=== PATIENT | female | born 1990 | race Caucasian/White ===

== ENCOUNTER 2025-06-18 14:21 | Outpatient (AMB) | payer OTHER, SELFPAY ==
--- NOTE | 2025-06-18 14:48 | MHC.OFFVIS ---
Intake Visit Reasons: headache HPI Comments Details: The patient is a 34-year-old female presenting with recurrent headaches and dizziness following a head injury. In March 2023, she sustained a head impact from a softball without loss of consciousness. Initially, she exhibited no concerning symptoms, leading to an absence of immediate imaging evaluations. Post-injury, the patient reports recurring dizziness and severe migraine-like headaches, primarily triggered by physical activity. Described as throbbing with associated nausea and dizziness, these episodes impact her daily activities, notably work and driving, and last 6 to 10 hours. While ibuprofen and aspirin have been attempted, their efficacy is limited. The patient expresses concerns about potential long-term consequences of the head trauma and requests imaging studies to assess her condition. Review of Systems Const Details: - Neurological: Reports headaches, dizziness, migraines with nausea. Denies loss of consciousness post-injury. - Musculoskeletal: Reports prior knee surgery in 2009. No current issues reported. - Psychiatric: No relevant symptoms reported. - Others: Denies any aural symptoms prior to the current headache issues. Physical Exam Neuro Other: Mental Status: Alert and oriented to person, place, and time. Normal attention. Normal spontaneous speech, fluency, and comprehension. No obvious issues with mood and memory. Affect is appropriate. Cranial Nerves: CN II: Visual long full to confrontation, visual acuity intact. CN III, IV, : Pupils equal, round, reactive to light and accommodation. Extraocular movements are normal. CN V: Facial sensation is normal. CN VII: Facial movements symmetrical. CN VIII: Hearing intact to bedside conversation is normal. CN IX, X: Palate elevates symmetrically. CN XI: Shoulder shrug and head turn symmetrical. CN XII: Tongue midline without atrophy or fasciculations. Motor: Bulk and tone normal in all extremities. No significant muscle weakness in arms and legs. No drift. Reflexes: Deep tendon reflexes 2+ and symmetric. Plantar response down-going bilaterally. Coordination: Uwcgmt-tb-huas and cdvg-kd-kewk testing normal. No dysmetria. Gait and Station: No obvious gait abnormality. No ataxia or instability. Sensory: Intact to light touch, pinprick, and vibration. Romberg is negative. Extrapyramidal: Full facial expressions and blinking. No rigidity. Movements are appropriate with no tremor or abnormality. Speech: Normal; no dysarthria or tremor. Assessment & Plan Assessment & Plan (1) Migraine without aura and without status migrainosus, not intractable: Code(s): G43.009 - Migraine without aura, not intractable, without status migrainosus Category: Medical Plan Impression: 1. Migraine without aura 2. History of mild concussion 3. Significant anxiety about having some serious neurological or brain condition Recommendations: 1. MRI of brain without contrast 2. Laboratories 3. Sumatriptan 50 mg 1 q.day PRN Orders: Orders MR head/brain wo con Today G43.009 - Migraine without aura, not intractable, without status migrainosus Erythrocyte Sedimentation Rate Today G43.009 - Migraine without aura, not intractable, without status migrainosus Lyme IgG/IgM w/reflex to WB Today G43.009 - Migraine without aura, not intractable, without status migrainosus BRIANNA Reflex Titer and Pattern Today G43.009 - Migraine without aura, not intractable, without status migrainosus Medications: New sumatriptan succinate 50 mg orally one a day as needed PRN; do not exceed 4 doses per 24 hrs 10 tabs 5RF migraine headache 30 days Coding Level of Care Code New Pt Level 4 (84270) Diagnoses Migraine without aura and without status migrainosus, not intractable G43.009
--- OUTSIDE RECORDS SUMMARY | 2025-06-18 16:46 | XMS_ITS | Clinical Summary ---
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 11/07/2010 Joint pain, knee 07/01/2010 Social History Tobacco Use Types Packs/Day Years Used Date Smoking Tobacco: Never Comments:: Comments Unknown Sex and Gender Information Value Date Recorded Sex Assigned at Not on file Legal Sex Female 11:30 AM EDT Gender Identity Not on file Sexual Orientation Not on file Last Filed Vital Signs Vital Sign Reading Time Taken Comments Blood Pressure - - Pulse - - Temperature - - Respiratory Rate - - Oxygen Saturation - - Inhaled Oxygen Concentration - - Weight 95.3 kg (210 lb) 02/20/2015 10:41 AM EDT Height 176.5 cm (5' 9.5 ) 02/20/2015 10:41 AM ED T Body Mass Index 30.57 02/20/2015 10:41 AM EDT Plan of Treatment Health Maintenance Due Date Last Done Comments HIV Screening 1992 Varicella Vaccines (1 of 2 - 13+ 2-dose series) 2005 Hepatitis B Vaccines (1 of 3 - 19+ 3-dose series) 2011 DTaP,Tdap,and Td Vaccines (1 - Tdap) 2014 Alcohol/Substance Use Screening 10/11/2024 COVID-19 Vaccine (3 - 2024-2 6 season) 2025 06/12/2021, 05/22/2021 Influenza Vaccine (#1) 2025 RSV Vaccine (60+ years old and patients) (1 - 1-dose 75+ series) 2067 Pneumococcal Vaccine: Pediatric (0-5 Years) and At-Risk Patients (6-50 Years) Aged Out No longer eligible based on patient's age to complete this topic Insurance [facility] HSNO/[place] [address] [place] [address] Care Teams Patient Flow Coordinator Relationship Specialty Start Date End Date Kailee Curtis MD PCP - General Family Medicine 07/09/21
--- OUTSIDE RECORDS SUMMARY | 2025-06-18 16:46 | XMS_ITS | Clinical Summary ---
Author Organization [facility] Address [address] [place] [phone] Phone Care Team Providers Care Assistant Child Care Teacher Name Role Phone Pcp, Unknown Primary Care Provider Unavailabl e Encounters Date Type Department Care Team Description 06/15/2025 Orders Only [facility] [address] [place] [address] Kaleb Copeland PA-C from Last 3 Months Immunizations Immunization Administration Dates Next Due COVID-19 (Pre-08/02) Pfizer Vaccine, mRNA, PF ,05/22/2021 Meningococcal ACWY, unspecified formulation 04/11 Social History Tobacco Use Types Packs/Day Years Used Date Smoking Tobacco: Never Assessed Child or Family Care Answer Date Record ed Do you have problems with on e of the following making it difficult for you to work, study, or receive health care? Family care (i.e. spouse, parents, other family) 06/14/2025 Education Answer Date Recorded Are you interested in help w ith more adult education (for example, completing high school, GED, job training, learning the [place] language, technical skills, or developing parenting skills)? No 06/14/2025 Are you concerned about learning? Not on file 06/14/2025 No 06/14/2025 Yes 06/14/2025 Food Answer Date Recorded Within the past 6 months we worried whether our food would run out before we got money to buy more. Sometimes True 025 Within the past 6 months the food we bought just didn't last and we didn't have enough money to get more. Sometimes True 01/2025 Residential Stability Answer Date Recor ded What is your housing situation today? I am stayi ng with others 06/14/2025 How many times have you move d in the past 12 months? Zero (I did not move) 06/14/2025 Paying for Meds Answer Date Recorded Do you have trouble paying for medicines? Yes 06/14/2025 Paying Utility Bills Answer Date Record ed Do you have trouble paying your heating or elect ricity bill? Yes 06/14/2025 Transportation Answer Date Recorded Has the lack of transportati on kept you from medical appointments or from getting medications? No 06/14/2025 Unemployment Answer Date Recorded Are you currently unemployed or working on a part-time or temporary basis, and looking for work? No 06/14/2025 Digital Access Answer Date Recorded No 06/14/2025 Yes 06/14/2025 Do you have reliable internet access at home? Ye s 06/14/2025 Do you have a device (e.g., phone, tablet, computer) with a working camera? Yes 06/14/2025 Intimate Partner Violence Answer Date R ecorded Denied Basic Needs Not on file 06/14/2025 In the past 12 months have y ou been in a relationship with a person who hurts, threatens, or tries to control you? No 06/14/2025 Worried food would run out Not on file 06/14 In the past 12 months have y ou been in a relationship with a person who hurts, threatens, or tries to control you? No 06/14/2025 Comments Unknown Sex and Gender Information Value Date Recorded Sex Assigned at Not on file Legal Sex Female 5:06 PM EST Gender Identity Not on file Sexual Orientation Not on file Plan of Treatment Upcoming Encounters Date Type Department Care Team (Late st Contact Info) Description 06/21/2025 10:40 AM EDT Office Visit [facility] [address] [place] [address] Kaleb Copeland PA-C [address] [place] [address] Health Maintenance Due Date Last Done Comments Adult Td,Tdap Booster 1992 SMOKING Hx and SMOKELESS TOBACCO SCREENING 2005 HEPATITIS C SCREENING 2010 HIV ONE-TIME SCREENING (18-6 5 YEARS) 2010 PAP SMEAR 2013 INFLUENZA VACCINE (#1) 2025 COVID-19 VACCINE (3 - 2024-2 6 season) 2025 06/12/2021, 05/22/2021 REPEAT PHQ 07/14/2025 06/14/2025, 06/14/2025 DEPRESSION SCREENING 06/14/2026 06/14/2025, 06/14/2025 MENINGOCOCCAL VACCINES (ACWY) Completed 05/07/2010 HEPATITIS A VACCINES Aged Out No long er eligible based on patient's age to complete this topic HIB VACCINES Aged Out No longer eligi ble based on patient's age to complete this topic MENINGOCOCCAL VACCINES (B) Aged Out N o longer eligible based on patient's age to complete this topic PNEUMOCOCCAL VACCINES (0-49 years) Aged Out No longer eligible b ased on patient's age to complete this topic Medical Devices Not on file Insurance [facility] NON NSPG PCP [facility]CTOR[facility] NON NSPG PCP [facility] NON NSPG PCP [facility] NON NSPG PCP S[facility] NON NSPG PCP S[facility] NON NSPG PCP [facility] Care Teams Assistant Child Care Teacher Relationship Specialty Start Date End Date Pcp, Unknown PCP - General 04/12/25 Additional Source Comments The information contained in this document represents components of the legal health record. It is not the complete legal health record.[facility]
--- OUTSIDE RECORDS SUMMARY | 2025-06-18 16:46 | XMS_ITS | Encounter Summary ---
Author Organization [facility] Address [address] [place] [phone] Phone Care Team Providers Care Intelligence Engineer Name Role Phone Pcp, Unknown Primary Care Provider Unavailabl e Encounter Details Date Type Department Care Team (Late st Contact Info) Description 06/15/2025 Orders Only [facility] [address] [place] [address] Kaleb Copeland PA-C [address] [place] [address] [email or web address] Social History Tobacco Use Types Packs/Day Years [...] high school, GED, job training, learning the [place] language, technical skills, or developing parenting skills)? [...] is your housing situation today? I am glenda edge with others 06/14/2025 How many times have [...] on file Sexual Orientation Not on file documented as of this encounter Progress Notes * Faviola Pacheco CMA - 06/15/2025 1:28 PM EDT HM updated documented in this encounter Plan of Treatment Upcoming Encounters Date Type Department Care Team (Late st Contact Info) Description 06/21/2025 10:40 AM EDT Office Visit [facility] [address] [facility] [place] [phone] Kaleb Copeland PA-C [address] [place] [address] [email or web address] documented as of this encounter Procedures Procedure Name Priority Date/Time Associated Diagnosis Comments COMPREHENSIVE METABOLIC PANEL Routine 08/21/2023 1:28 PM EST CBC Routine 08/21/2023 1:28 PM EST TSH Routine 08/21/2023 1:28 PM EST HEMOGLOBIN A1C Routine 08/21/2023 1:28 PM EST LIPID PANEL Routine 08/21/2023 1:28 PM EST documented in this encounter Results * CBC (08/21/2023 1:28 PM EST) [facility] Provider MD LAB BLOOD ORDERABLES Eleonora l Result * Comprehensive metabolic panel (08/21/2023 1:28 PM EST) Sodium - External Potassium - External 4.4 Chloride - External CO2 - External BUN - External Creatinine - External 0.8 Glucose - External 86 Albumin - External Protein - External Calcium - External Alkaline Phosphatase - External Bilirubin, total - External AST - External ALT - External 17 Globulin - External eGFR - External Anion Gap - External [facility] Provider LAB BLOOD ORDERABLES Edit ed Result - Final * Hemoglobin A1c (08/21/2023 1:28 PM EST) Hemoglobin A1c - External 5.5 Historical Provider MD LAB BLOOD ORDERABLES Edit ed Result - Final * Lipid panel (08/21/2023 1:28 PM EST) HDL - External 44 Cholesterol, Total - External 152 Triglycerides - External 60 LDL, calculated - External 96 Cardiac Risk Ratio - External Non-HDL Cholesterol - External [facility] Provider LAB BLOOD ORDERABLES Edit ed Result - Final * TSH (08/21/2023 1:28 PM EST) TSH - External 1.42 us Historical Provider LAB BLOOD ORDERABLES Edit ed Result - Final documented in this encounter Visit Diagnoses Not on filedocumented in this encounter Additional Health Concerns Assessment Noted Time PHQ-9 Depression Total Score: 20 025 9:46 AM EDT PHQ-2 Depression Total Score: 4 06/14/20 25 9:46 AM EDT documented as of this encounter Care Teams Intelligence Engineer Relationship Specialty Start Date End Date Pcp, Unknown PCP - General 04/12/25 documented as of this encounter Additional Source Comments The information contained in this document represents components of the legal health record. It is not the complete legal health record.[facility]
--- OUTSIDE RECORDS SUMMARY | 2025-06-18 16:46 | XMS_ITS | Clinical Summary ---
Author Organization [facility] [employer] Address [address] [facility] [address] Care Team Providers Care Building Materials Sales Attendant Name Role Phone Unavailable Primary Care Provider Unavailabl e Social History Tobacco Use Types Packs/Day Years Used Date Smoking Tobacco: Never Assessed Comments Unknown Sex and Gender Information Value Date Recorded Sex Assigned at Not on file Legal Sex Female 8:07 AM EST Gender Identity Not on file Sexual Orientation Not on file Plan of Treatment Health Maintenance Due Date Last Done Comments Depression: Screening Annual ly using PHQ-2/9 in Adults 18 yrs or above (or HM Modifier)([facility]) 2010 Hepatitis C Virus Infection in Adolescents and Adults: Screening (or Modifier) ([facility]) 2010 SDMI Screening Reminder: Amita barbie for all adults ([facility]) 2010 Tobacco Smoking Cessation: i n Adults excluding Women: Behavioral and Pharmacotherapy Interventions ([facility]) 2010 DTaP/Tdap/Td Vaccines ([facility]) (1 - Tdap) 2011 Cervical Cancer Screenin 1-65 yrs of age (or Modifier) 2013 Cervical Cancer Screening: P ap every 3 yrs pts age 21-65 2013 Cervical Cancer: Pap Screeni ng with Modifier timing ([facility]) 2013 Cervical Cancer: hrHPV alone or with cotesting Pap for Pts 30-65yrs screening every 5yrs ([facility]) 2013 Flu Vaccination: Yearly for ages 18mos through 64 years (or Modifier)([facility]) 05/11/2025 Zoster/Shingles Vaccine Seri es Screening: Adults aged 18+ yrs (or HM Modifiers)([facility]) (1 of 2) 2042 Pneumococcal Vaccination Scr eening: Pts 0-19 & 19-49 yrs of age ([facility]) Aged Out No longer eligible based on patient's age to complete this topic Medical Devices Not on file
--- OUTSIDE RECORDS SUMMARY | 2025-06-18 16:46 | XMS_ITS | Clinical Summary ---
Author Organization [facility] Address [address] [place] [address] Care Team Providers Care Exploration Manager Name Role Phone Unknown Pcp, Non Rmg Primary Care Provider Unava ilable Allergies No known active allergies Medications ALBUTEROL SULFATE (PROAIR HFA) 108 (90 BASE) MCG/ACT Aero Soln 2 PUFFS 4X DAILY NEEDED 1 Inhaler 0 03/08/2016 Active Active Problems No known active problems Immunizations Immunization Administration Dates Next Due DT (pediatric) 03/16/1997 MMR 03/16/1997 OPV, Trivalent (Admin Before 01/10/2016) 7 PPD/TST (Tuberculin Skin Test) 03/16/1997 Social History Tobacco Use Types Packs/Day Years Used Date Smoking Tobacco: Former Smokeless Tobacco: Never Alcohol Use Standard Drinks/Week Comments Not Asked 0 (1 standard drink = 0.6 oz pur e alcohol) Comments No Sex and Gender Information Value Date Recorded Sex Assigned at Not on file Legal Sex Female 3:07 AM EDT Gender Identity Not on file Sexual Orientation Not on file Last Filed Vital Signs Vital Sign Reading Time Taken Comments Blood Pressure 97/64 03/08/2016 11:23 AM EDT Pulse 80 03/08/2016 11:23 AM EDT Temperature 36.5 C (97.7 F) 03/08/2016 11:23 AM EDT Respiratory Rate 16 03/08/2016 11:23 AM EDT Oxygen Saturation 98% 03/08/2016 11:23 AM EDT Inhaled Oxygen Concentration - - Weight - - Height - - Body Mass Index - - Plan of Treatment Health Maintenance Due Date Last Done Comments Hepatitis C Screening 1992 Pap Smear 2008 DTaP/Tdap/Td (1 - Tdap) 2010 Hep B (1 of 3 - 19+ 3-dose series) 2011 COVID-19 Vaccine (2023-2 5 season) 2025 Influenza (#1) 2025 Zoster (Shingrix) (1 of 2) 2042 HPV Vaccine (No Doses Required) Completed Hep A Aged Out No longer eligi ble based on patient's age to complete this topic Hib Aged Out No longer eligi ble based on patient's age to complete this topic Meningococcal ACWY Aged Out No longer eligible based on patient's age to complete this topic Pneumococcal Aged Out No longer eligi ble based on patient's age to complete this topic Insurance * Guarantor: SAL CHAVEZ Account Type Relation to Patient Date of Phone Billing Address Personal/Family [address] [place] [phone] FFS Care Teams Exploration Manager Relationship Specialty Start Date End Date Unknown Pcp, Non Rmg PCP - General 04/10/16
== END 2025-06-18 15:06 | disposition home or self-care (01) ==
LOC: HO.HSM 14:22
PROVIDERS: Visit Provider Psychiatry & Neurology Neurology
DX: G43.009 Migraine without aura, not intractable, without status migrainosus (principal)
CPT/HCPCS: 99204

== ENCOUNTER 2025-06-18 14:21 | Outpatient (REF) | payer OTHER, SELFPAY ==
[2025-06-19 05:58] LABS: Lyme Abs Screen <0.90 index
[2025-06-21 12:02] LABS: Anti Nuclear Antibody Screen NEGATIVE (NEGATIVE)
== END 2025-06-18 14:22 | disposition home or self-care (01) ==
LOC: HO.LAB 14:21
PROVIDERS: Visit Provider Psychiatry & Neurology Neurology
DX: Z01.84 Encounter for antibody response examination (principal); G43.009 Migraine without aura, not intractable, without status migrainosus; F41.9 Anxiety disorder, unspecified; Z87.820 Personal history of traumatic brain injury
CPT/HCPCS: 36415; 85652; 86038; 86617; 86618; 99202

== ENCOUNTER 2025-07-12 17:31 | Outpatient (REF) | payer OTHER, SELFPAY ==
--- NOTE | ~2025-07-12 | MR_ITS ---
EXAMINATION: MR BRAIN WITHOUT CONTRAST CLINICAL INFORMATION: Migraine. G 43.009. COMPARISON: None available. TECHNIQUE: MRI of the brain was obtained using routine sequences without contrast. FINDINGS: No restricted diffusion. No acute intracranial hemorrhage, mass effect, midline shift, hydrocephalus or herniation. Azul-white matter differentiation is normal. Posterior cranial fossa contents demonstrated no signal abnormality or mass effect. Craniocervical junction demonstrates normal position of the cerebellar tonsils. Sellar/suprasellar region is normal. Flow-void signal within the main cerebral vessels is normal. Prominent palatine tonsils with the restricted diffusion. Prominent cervical lymph nodes. MR/MR head/brain wo con IMPRESSION: No acute or structural brain abnormality. Inflammatory versus infectious process, palatine tonsils. Recommend direct inspection. Electronically signed by: Raphael Stewart MD 07/13/2025 06:57 AM EDT
--- OUTSIDE RECORDS SUMMARY | 2025-07-12 17:39 | XMS_ITS | Clinical Summary ---
Author Organization [facility] Address [address] [facility] [address] [place] [phone] Phone Care Team Providers Care Railroad Firer/Fireman Name Role Phone Kaleb Copeland PA-C Primary Care Provider [phone] Allergies Active Allergy Reactions Criticality Noted Date Comments Soy Throat Tightness Medium 06/21/2025 Medications albuterol 90 mcg/actuation inhaler Inhale 2 puffs into the lungs 4 (four) times a day as needed. 08/21/2024 Active ibuprofen (ADVIL,MOTRIN) 600 MG tablet Take 600 mg by mouth daily as needed for pain (specific location in comments). 06/18/2025 Active SUMAtriptan (IMITREX) 50 MG tablet 06/18/2025 Active Medication-Free Text Acid railroad inspector otc prn Active Active Problems Problem Noted Date Diagnosed Date Routine general medical exam ination at a health care facility 06/21/2025 Assessment & Plan (06/21/2025 1:03 PM EDT): We will obtain a CMP, TSH, fasting glucose and lipid panel Tdap given Annual physical 1 year Acute pain of left knee 06/21/2025 Assessment & Plan (06/21/2025 1:04 PM EDT): Patient with a history of left knee pain subsequently underwent surgery. Patient continues to have left knee pain which is constant. She also mentions that she has been noticing some effusions. I will obtain a left knee x-ray depending on what is found in the x-ray then a possible referral to Ortho for further evaluation. I will obtain an ESR, CRP, GC/chlamydia, Lyme and rheumatoid factor. I suspect that she could potentially have underlying osteoarthritis which is causing and precipitating the pain and effusions Right foot pain 06/21/2025 Assessment & Plan (06/21/2025 1:06 PM EDT): Patient mentions that that it all started with a hangnail on the right great toe which precipitated in her doing some digging around and then subsequently was seen by a production truck driver who cut out the nail. She notes that she started with pain in the second third metatarsals and then subsequently ended up developing decree sensation over the second third middle tarsals to the distal end of the 2nd and 3rd digits on the right. Unclear etiology at this time as it is localized. We will obtain a right foot x- ray and an EMG for further evaluation. Mood swings 06/21/2025 Assessment & Plan (06/21/2025 1:08 PM EDT): Patient mentions that she carries a history of borderline personality disorder, anxiety and depression however is not currently on any medications. Patient mentions that her moods really swing and fluctuate a week prior to her menses. She tells me that her therapist who she sees regularly had recommended that she undergo hormone testing for further investigation to see if there is any correlation. She also tells me that she has been having difficulty obtaining a psychiatrist and she is noted to have an elevated PHQ-9 and elevated RAMON score. I further discussed with the patient if she were to develop any thoughts of self-harm or harming anybody else she is to reach out to [facility] or go to the [facility] for further evaluation. Patient states that she understands and acknowledges this. She denies any SI or HI. She contracts for safety. She is hesitant about starting any medications at this time until she is seen and evaluated by psychiatry. There is a concern for underlying bipolar disorder. -I have placed an urgent referral to our social work Abi Barrett Need for hepatitis C screening test 06/21/2025 Assessment & Plan (06/21/2025 1:08 PM EDT): Hep C screening lab Screening for human immunodeficiency virus 06/21 Assessment & Plan (06/21/2025 1:08 PM EDT): HIV screening lab Seasonal allergies 06/21/2025 Assessment & Plan (06/21/2025 1:36 PM EDT): Patient with a history of seasonal allergies who states that she does use an albuterol inhaler as needed. We will continue this Migraine 06/21/2025 Assessment & Plan (06/21/2025 1:37 PM EDT): Patient with a history of migraines who feels could be a consequence of a previous head injury. She had been told previously that her symptoms were related to a concussion however after seeing her neurologist they felt that her headaches are associated with previous head injury now with noted migraines for which she had been taking ibuprofen for. The prescribed sumatriptan and daily as needed and an MRI brain is currently pending. She will follow-up with the neurologist as scheduled. Encounters Date Type Department Care Team Description 07/04/2025 Telephone [facility] Internal Medicine [address] [place] [address] Kaleb Copeland PA-C Imaging (EMG) 06/25/2025 Telephone [facility] [address] [place] [address] Abi aBrrett Care Coordination 06/25/2025 Telephone [facility] [address] [place] [address] Abi Barrett Care Coordination 06/21/2025 3:30 PM EDT - 06/21/2025 11:59 PM EDT Hospital Encounter [address] [address] Kaleb Copeland PA-C Discharge Disposition: Home or Self Care 06/21/2025 3:30 PM EDT Hospital Encounter [address] [address] Kaleb Copeland PA-C Discharge Disposition: Home or Self Care 06/21/2025 11:57 AM EDT - 06/21/2025 3:29 PM EDT Hospital Encounter [facility] [address] [place] [address] Kaleb Copeland PA-C Discharge Disposition: Home or Self Care 06/21/2025 10:40 AM EDT Office Visit [facility] Internal Medicine [address] [place] [address] Kaleb Copeland PA-C Routine general medical examination at a health care facility (Primary Dx); Screening for human immunodeficiency virus; Need for hepatitis C screening test; Acute pain of left knee; Right foot pain; Mood swings; Seasonal allergies; Migraine without aura and without status migrainosus, not intractable 06/21/2025 Orders Only [facility] Internal Medicine [address] [place] [address] ProviderStas MD 06/15/2025 Orders Only [facility] Internal Medicine [address] [place] [address] Kaleb Copeland PA-C from Last 3 Months Immunizations Immunization Administration Dates Next Due COVID-19 (Pre-08/02) Pfizer Vaccine, mRNA, PF ,05/22/2021 DT 03/16/1997 MMR 03/16/1997 Meningococcal ACWY, unspecified formulation 04/11 PPD Test 03/16/1997 Polio - OPV 03/16/1997 Tdap 06/21/2025 Family History Medical History Relation Comments Alcohol abuse Maternal Grandfather Substance use disorder Maternal Grandfather Bipolar disorder Maternal Grandmother Cancer Maternal Grandmother Lung cancer Maternal Grandmother Throat cancer Maternal Grandmother Anxiety disorder Mother Depression Mother Fibroids Mother Prediabetes Sister Relation Status Comments Father Unknown Maternal Grandfather Maternal Grandmother Mother Alive Sister Alive Social History Tobacco Use Types Packs/Day Years Used Date Smoking Tobacco: Never Smokeless Tobacco: Never Tobacco Cessation:Counseling Given: Not Answered Alcohol Use Standard Drinks/Week Comments Yes 0 (1 standard drink = 0.6 oz pur e alcohol) 1-2 drinks, Monthly or less Child or Family Care Answer Date Record ed Do you have problems with on e of the following making it difficult for you to work, study, or receive health care? Family care (i.e. spouse, parents, other family) 06/14/2025 Education Answer Date Recorded Are you interested in help w ith more adult education (for example, completing high school, GED, job training, learning the Chinese language, technical skills, or developing parenting skills)? [...] Sign Reading Time Taken Comments Blood Pressure 124/78 06/21/2025 10:34 AM EDT Pulse 82 06/21/2025 10:34 AM EDT Temperature - - Respiratory Rate 15 06/21/2025 10:3 4 AM EDT Oxygen Saturation 98% 06/21/2025 10: 34 AM EDT Inhaled Oxygen Concentration - - Weight 108.8 kg (239 lb 12.8 oz) 2024 10:34 AM EDT Height 175.3 cm (5' 9 ) 06/21/2025 10:3 4 AM EDT Body Mass Index 35.41 06/21/2025 10:34 AM EDT Plan of Treatment Upcoming Encounters Date Type Department Care Team (Late st Contact Info) Description 09/18/2025 2:30 PM EST Procedure visit [facility] Neurology [address] [place] [address] Baudilio Louis MD [address] [facility] [place] [address] [email or web address] 10/08/2025 3:40 PM EST Office Visit [facility] Internal Medicine [address] [place] [address] Kaleb Copeland PA-C [address] [place] [address] [email or web address] Health Maintenance Due Date Last Done Comments INFLUENZA VACCINE (#1) 2025 COVID-19 VACCINE (3 - 2024-2 6 season) 2025 06/12/2021, 05/22/2021 REPEAT PHQ 07/14/2025 06/14/2025, 06/14/2025 DEPRESSION SCREENING 06/14/2026 06/14/2025, 06/14/2025 PAP SMEAR 02/20/2027 02/21/2024 Adult Td,Tdap Booster 06/21/2035 06/21/2025 MENINGOCOCCAL VACCINES (ACWY) Completed 05/07/2010 HEPATITIS C SCREENING Completed 06/21/2025 HIV ONE-TIME SCREENING (18-6 5 YEARS) Completed 06/21/2025 SMOKING STATUS SCREENING (On ce After 26 Yrs) Completed 06/21/2025 HEPATITIS A VACCINES Aged Out No long [...] this topic Medical Devices Not on file Procedures Procedure Name Priority Date/Time Associated Diagnosis Comments XR KNEE 4 OR MORE VIEWS (LEFT) Routine 06/21/2025 3:49 PM EDT Acute pain of left knee XR FOOT 3 OR MORE VIEWS (RIGHT) Routine 06/21/2025 3:48 PM EDT Right foot pain CHLAMYDIA TRACHOMATIS AND NEISSERIA GONORRHOEAE NUCLEIC ACID DETECTION Routine 06/21/2025 1:15 PM EDT Acute pain of left knee SEDIMENTATION RATE (ESR) Routine 06/21/2025 11:58 AM EDT Acute pain of left knee C-REACTIVE PROTEIN Routine 06/21/2025 11 :58 AM EDT Acute pain of left knee RHEUMATOID FACTOR Routine 06/21/2025 11: 58 AM EDT Acute pain of left knee PROGESTERONE Routine 06/21/2025 11:58 AM EDT Mood swings ESTROGENS, E1+E2, FRACTIONATED Routine 06/21/2025 11:58 AM EDT Mood swings TSH WITH REFLEX Routine 06/21/2025 11:58 AM EDT Routine general medical examination at a health care facility LIPID PANEL Routine 06/21/2025 11:58 AM EDT Routine general medical examination at a [facility] care facility GLUCOSE, FASTING Routine 06/21/2025 11:5 8 AM EDT Routine general medical examination at a [facility] COMPREHENSIVE METABOLIC PANEL Routine 06/21/2025 11:58 AM EDT Routine general medical examination at a [facility] LYME SCREEN WITH REFLEX TO WESTERN BLOT, BLOOD Routine 06/21/2025 11:58 AM EDT Acute pain of left knee HIV-1/2 ANTIGEN/ANTIBODY Routine 06/21/2025 11:58 AM EDT Screening for human immunodeficiency virus HEPATITIS C ANTIBODY, QUALITATIVE Routine 06/21/2025 11:58 AM EDT Need for hepatitis C screening test PAP TEST Routine 02/21/2024 10:54 AM EDT from Last 3 Months or Most Recently Relevant to Health Maintenance Results * XR KNEE 4 OR MORE VIEWS (LEFT) (06/21/2025 3:49 PM EDT) Anatomical Region Laterality Modality Knee Left Computed Radiogr aphy 06/22/2025 1:06 PM EDT Impressions 06/22/2025 1:07 PM EDT Degenerative and postoperative changes. No acute osseous abnormality. Narrative 06/22/2025 1:07 PM EDT XR KNEE 4 OR MORE VIEWS (LEFT) Referring clinician's provided indication for this examination in Epic: Pain COMPARISON: None FINDINGS: Prior anterior cruciate ligament reconstruction. Mild to moderate tricompartment degenerative changes. No joint effusion. No acute fracture. Procedure Note Maria T Girard MD - 06/22/2025 XR KNEE 4 OR MORE VIEWS (LEFT) Referring clinician's provided indication for this examination in Epic:Pain COMPARISON: None FINDINGS: Prior anterior cruciate ligament reconstruction. Mild to moderatetricompartment degenerative changes. No joint effusion. No acutefracture. IMPRESSION: Degenerative and postoperative changes. No acute osseous abnormality. Kaleb RAMIREZ-C IMG XR LOWER EXTREMITY Final Result * XR FOOT 3 OR MORE VIEWS (RIGHT) (06/21/2025 3:48 PM EDT) Anatomical Region Laterality Modality Foot Right Computed Radiogr aphy 06/22/2025 1:04 PM EDT Impressions 06/22/2025 1:06 PM EDT No acute osseous abnormality. Narrative 06/22/2025 1:06 PM EDT XR FOOT 3 OR MORE VIEWS (RIGHT) Referring clinician's provided indication for this examination in Epic: Pain COMPARISON: None FINDINGS: No acute fracture or dislocation. No soft tissue swelling. Normal joint spaces. Plantar and dorsal calcaneal enthesophytes. Procedure Note Maria T Girard MD - 06/22/2025 XR FOOT 3 OR MORE VIEWS (RIGHT) Referring clinician's provided indication for this examination in Epic:Pain COMPARISON: None FINDINGS: No acute fracture or dislocation. No soft tissue swelling. Normal jointspaces. Plantar and dorsal calcaneal enthesophytes. IMPRESSION: No acute osseous abnormality. us Kaleb Copeland PA-C IMSalty XR LOWER EXTREMITY Final Result * Chlamydia Trachomatis and Neisseria Gonorrhoeae Nucleic Acid Detection (06/21/2025 1:15 PM EDT) CHLAMYDIA TRACHOMATIS Not Detected Not Detected [facility] NEISERIA GONORRHOEAE Not Detected Not Detected [facility] SPECIMEN TYPE URINE [facility] Urine (Urine) 06/21/2025 1:1 5 PM EDT 06/21/2025 1:17 PM EDT Kaleb Copeland PA-C NON CULTURE MICROBIOLOGY Eleonora l Result Performing Organization Address City/[facility]/ZIP Co de Phone Number [address] [address] * Glucose, fasting (06/21/2025 11:58 AM EDT) FASTING GLUCOSE 90 70 - 95 mg/dL [facility] Blood 06/21/2025 11:5 8 AM EDT 06/21/2025 12:05 PM EDT Kaleb Copeland PA-C LAB BLOOD ORDERABLES Final Re sult Performing Organization Address [facility] Co de Phone Number [address] [address] * ESTROGENS, E1+E2, FRACTIONATED (06/21/2025 11:58 AM EDT) ESTRONE 46 pg/mL [facility] MED/[facility] [address] Comment: (NOTE) REFERENCE VALUE Premenopausal :17-200 Postmenopausal : 7-40 ADDITIONAL INFORMATION This test was developed and its performance characteristics determined by [facility] in a manner consistent with CLIA requirements. This test has not been cleared or approved by the U.S. Food and Drug Administration. ESTRADIOL, S 22 pg/mL [facility] LAB MED/[facility] Comment: (NOTE) REFERENCE VALUE Premenopausal: 15-350 (E2 levels vary widely through the menstrual cycle.) Postmenopausal: <10 ADDITIONAL INFORMATION This test was developed and its performance characteristics determined by [facility] in a manner consistent with CLIA requirements. This test has not been cleared or approved by the U.S. Food and Drug Administration. Blood 06/21/2025 11:5 8 AM EDT 06/21/2025 12:05 PM EDT Kaleb Copeland PA-C LAB BLOOD ORDERABLES Final Re sult [facility] [address] [place] [address] * Lyme Screen with Reflex to Immunoblot, Blood (06/21/2025 11:58 AM EDT) Pathologist [facility] Lyme AB IgG Negative Negative [facility] Lyme AB IgM Negative Negative [facility] Blood 06/21/2025 11:5 8 AM EDT 06/21/2025 12:05 PM EDT Kaleb Copeland PA-C LAB BLOOD ORDERABLES Final Re sult Performing Organization Address City/[facility] Co de Phone Number [address] [address] * (ABNORMAL) Comprehensive metabolic panel (06/21/2025 11:58 AM EDT) [facility] SODIUM 140 133 - 146 mmol/L [facility] POTASSIUM 4.0 3.3 - 5.1 mmol/L [facility] CHLORIDE 105 96 - 108 mmol/L [facility] CO2 22 21 - 35 mmol/L [facility] BUN 13 6 - 19 mg/dL [facility] CREATININE 0.70 0.5 - 1.5 mg/dL [facility] GLUCOSE 103(H) 70 - 99 mg/dL [facility] ALBUMIN 4.6 3.9 - 4.8 g/dL [facility] TOTAL PROTEIN 7.8 6.5 - 8.0 g/dL [facility] CALCIUM 9.5 8.4 - 10.3 mg/dL [facility] ALKALINE PHOSPHATASE 95 39 - 117 U/L [facility] TOTAL BILIRUBIN 0.4 0.0 - 1.2 mg/dL [facility] AST 26 0 - 37 U/L [facility] ALT 33 0 - 40 U/L [facility] GLOBULIN 3.2 1 - 4.8 g/dL [facility] EGFR 118 >59 mL/min/1.7 3m2 [facility] Comment:Estimated glomerular filtration rate calculated using the CKD-EPI refit equation. ANION GAP 17 10 - 20 mmol/L [facility] Blood 06/21/2025 11:5 8 AM EDT 06/21/2025 12:05 PM EDT us Kaleb Copeland PA-C LAB BLOOD ORDERABLES Final Re sult Performing Organization Address [facility] Co de Phone Number [address] [address] * Progesterone (06/21/2025 11:58 AM EDT) PROGESTERONE 0.50 ng/mL [facility] Comment: FEMALE: Follicular: 0.057 - 0.893 ng/ml Luteal: 1.83 - 23.9 ng/ml Blood 06/21/2025 11:5 8 AM EDT 06/21/2025 12:05 PM EDT us Kaleb Copeland PA-C LAB BLOOD ORDERABLES Final Re sult [address] [address] * HIV-1/2 antigen/antibody (06/21/2025 11:58 AM EDT) HIV-1/2 Antigen/Antibo dy NON-REACTI VE NON-REACTI VE [facility] Blood 06/21/2025 11:5 8 AM EDT 06/21/2025 12:05 PM EDT us Kaleb Copeland PA-C LAB BLOOD ORDERABLES Final Re sult Performing Organization Address [facility]/ZIP Co de Phone Number [address] [address] * TSH with reflex (06/21/2025 11:58 AM EDT) TSH 2.16 0.27 - 4.20 uIU/mL [facility] Blood 06/21/2025 11:5 8 AM EDT 06/21/2025 12:05 PM EDT us Kaleb Copeland PA-C LAB BLOOD ORDERABLES Final Re sult Performing Organization Address [facility] Co de Phone Number [address] [address] * Hepatitis C antibody, qualitative (06/21/2025 11:58 AM EDT) HCV NON-REACTIV E NON-REACTI VE [facility] Blood 06/21/2025 11:5 8 AM EDT 06/21/2025 12:05 PM EDT us Kaleb Copeland PA-C LAB BLOOD ORDERABLES Final Re sult Performing Organization Address [facility]/ZIP Co de Phone Number [address] [address] * Sedimentation rate (ESR) (06/21/2025 11:58 AM EDT) ESR 9 0 - 20 mm/h [facility] Blood 06/21/2025 11:5 8 AM EDT 06/21/2025 12:05 PM EDT us Kaleb Copeland PA-C LAB BLOOD ORDERABLES Final Re sult Performing Organization Address [facility]/ZIP Co de Phone Number [address] [address] * Rheumatoid factor (06/21/2025 11:58 AM EDT) RHEUMATOID FACTOR <10.0 0.0 - 14.0 IU/ml [facility] Blood 06/21/2025 11:5 8 AM EDT 06/21/2025 12:05 PM EDT Kaleb Copeland PA-C LAB BLOOD ORDERABLES Final Re sult Performing Organization Address [facility] Co de Phone Number [address] [address] * (ABNORMAL) C-Reactive Protein (06/21/2025 11:58 AM EDT) C REACTIVE PROTEIN 4.4(H) 0.0 - 4.0 mg/L [facility] Blood 06/21/2025 11:5 8 AM EDT 06/21/2025 12:05 PM EDT Kaleb Copeland PA-C LAB BLOOD ORDERABLES Final Re sult Performing Organization Address [facility] Co de Phone Number [address] [address] * Lipid panel (06/21/2025 11:58 AM EDT) HDL 37 mg/dL [facility] Comment: Interpretation <40 mg/dL: Low HDL cholesterol (major risk factor for CHD) Greater than or equal to 60 mg/dL: High HDL cholesterol ( negative risk factor for CHD) HDL - cholesterol is affected by a number of factors, e.g. smoking, excerise, hormones, sex and age. CHOLESTEROL 160 0 - 240 mg/dL [facility] TRIGLYCERIDES 97 30 - 160 mg/dL [facility] LDL 104 50 - 129 mg/dL [facility] Comment: LDL levels in terms of risk for coronary heart disease: <100 mg/dL: Optimal 100-129 mg/dL: Near or above optimal 130-159 mg/dL: Borderline high 160-189 mg/dL: High >190 mg/dL: Very High CARDIAC RISK RATIO 4.3 3.3 - 4.4 C [facility] Blood 06/21/2025 11:5 8 AM EDT 06/21/2025 12:05 PM EDT us Kaleb Copeland PA-C LAB BLOOD ORDERABLES Final Re sult [facility] [address] [place] [address] * Pap Test (02/21/2024 10:54 AM EDT) Result - External See Scanned Results Impressions TomaszyomairaFaviola mason, LOCAL TANKER TRUCK DRIVER - 02/21/2024 10:54 AM EDT NILM, HPV neg us Historical Provider MD CYTOLOGY ORDERABLES Edite d Result - Final from Last 3 Months or Most Recently Relevant to Health Maintenance Insurance WELLSENSE NON NSPG PCP SILVER CLARITY CONNECTORCARE WELLSENSE NON NSPG PCP SILVER CL[employer]ITY CONNECTORCARE WELLSENSE NON NSPG PCP SILVER CLARITY CONNECTORCARE WELLSENSE NON NSPG PCP SILVER CLARITY CONNECTORCARE WELLSENSE NON NSPG PCP SILVER CLARITY CONNECTORCARE WELLSENSE NON NSPG PCP MIKKI WALSH CONNECTORCARE Care Teams Railroad Firer/Fireman Relationship Specialty Start Date End Date Kaleb Copeland PA-C [address] [place] [id number] [email or web address] PCP - General Physician Instrument Man 06/21/25 Additional Source Comments The information contained in this document represents components of the legal health record. It is not the complete legal health record.[facility]
--- OUTSIDE RECORDS SUMMARY | 2025-07-12 17:39 | XMS_ITS | Encounter Summary ---
Author Organization [facility] Address [address] [place] [address] Phone Care Team Providers Care Logging Supervisor Name Role Phone Kaleb Copeland PA-C Primary Care Provider [phone] Encounter Details Date Type Department Care Team (Late st Contact Info) Description 06/21/2025 Orders Only [facility] Internal Medicine [address] [place] [address] Provider, MD Stas [address] [place], [place] [id number] Social History Tobacco Use Types Packs/Day Years Used Date Smoking Tobacco: Never Smokeless Tobacco: Never Alcohol Use Standard Drinks/Week Comments Yes 0 [...] high school, GED, job training, learning the Samoan language, technical skills, or developing parenting skills)? [...] on file documented as of this encounter Plan of Treatment Upcoming Encounters Date Type Department Care Team (Late st Contact Info) Description 09/18/2025 2:30 PM EST Procedure visit [facility] Neurology [address] [place] [address] Baudilio Louis MD [address] [facility] [place] [address] 10/08/2025 3:40 PM EST Office Visit [facility] Internal Medicine [address] [place], [place] [phone] Kaleb Copeland PA-C [address] [place], [place] [phone] [email or web address] documented as of this encounter Procedures Procedure Name Priority Date/Time Associated Diagnosis Comments PAP TEST Routine 02/21/2024 10:54 AM EDT documented in this encounter Results * Pap Test (02/21/2024 10:54 AM EDT) Result - External See Scanned Results Impressions Faviola Pacheco CMA - 02/21/2024 10:54 AM EDT NILM, HPV neg us Historical Provider CYTOLOGY ORDERABLES Edite d Result - Final documented in this encounter Visit Diagnoses Not on filedocumented in this encounter Additional Health Concerns Assessment Noted Time PHQ-9 Depression Total Score: 20 025 9:46 AM EDT PHQ-2 Depression Total Score: 4 06/14/20 25 9:46 AM EDT documented as of this encounter Care Teams Logging Supervisor Relationship Specialty Start Date End Date Kaleb Copeland PA-C [address] [place] [address] PCP - General Physician Computing Architect 06/21/25 documented as of this encounter Additional Source Comments The information contained in this document represents components of the legal health record. It is not the complete legal health record.[facility]
--- OUTSIDE RECORDS SUMMARY | 2025-07-12 17:39 | XMS_ITS | Clinical Summary ---
Author Organization [facility] lin Address [address] [facility] [place] [address] Care Team Providers Care Mechanical And Auto Body Car Checker Name Role Phone Unavailable Primary Care Provider [...] Adults 18 yrs or above (or HM Modifier)([facility]) 2010 Hepatitis C Virus Infection in Adolescents and Adults: Screening (or Modifier) ([facility]) 2010 SDVT Screening Reminder: Amita barbie for all adults ([facility]) 2010 Tobacco Smoking Cessation: i n Adults excluding Women: Behavioral and Pharmacotherapy Interventions ([facility]) 2010 DTaP/Tdap/Td Vaccines ([facility]) (1 - Tdap) 2011 Cervical Cancer Screenin 1-65 yrs of age (or Modifier) 2013 Cervical Cancer Screening: P ap every 3 yrs pts age 21-65 2013 Cervical Cancer: Pap Screeni ng with Modifier timing ([facility]) 2013 Cervical Cancer: hrHPV alone or with cotesting Pap for Pts 30-65yrs screening every 5yrs ([facility]) 2013 Flu Vaccination: Yearly for ages 18mos through 64 years (or Modifier)([facility]) 05/11/2025 COVID-19 Vaccine Screening: Initial Series and Booster Status ([facility]) (2023- season) 2025 Zoster/Shingles Vaccine Seri es Screening: Adults aged 18+ yrs (or HM Modifiers)([facility]) (1 of 2) 2042 Pneumococcal Vaccination Scr eening: Pts 0-19 & 19-49 yrs of age ([facility]) Aged Out No longer eligible based on patient's age to complete this topic Medical Devices Not on file
--- OUTSIDE RECORDS SUMMARY | 2025-07-12 17:39 | XMS_ITS | Clinical Summary ---
Author Organization [facility] Address [address] [place] [address] Care Team Providers Care Cmv Driver Name Role Phone Unknown Pcp, Non Rmg [...] Patient Date of Phone Billing Address Personal/Family [address] [place] [id number] FFS Care Teams Cmv Driver Relationship Specialty Start Date End Date Unknown Pcp, Non Rmg PCP - General 04/10/16
--- OUTSIDE RECORDS SUMMARY | 2025-07-12 17:39 | XMS_ITS | Clinical Summary ---
Author Organization [facility] Address [address] [place] [address] Care Team Providers Care Rehabilitation Inspector Name Role Phone Kailee Curtis MD Primary [...] patient's age to complete this topic Insurance [facility] HSNO/FREE [address] [id number] Care Teams Rehabilitation Inspector Relationship Specialty Start Date End Date Kailee Curtis MD PCP - General Family Medicine 07/09/21
== END 2025-07-12 17:32 | disposition home or self-care (01) ==
LOC: HO.MRI 17:31
PROVIDERS: Visit Provider Psychiatry & Neurology Neurology
DX: G43.009 Migraine without aura, not intractable, without status migrainosus (principal)
CPT/HCPCS: 70551

== ENCOUNTER → 2025-07-12 17:38 | Outpatient (BNV) | payer OTHER, SELFPAY | PROVIDERS: Visit Provider Radiology Diagnostic Radiology | DX: G43.009 Migraine without aura, not intractable, without status migrainosus (principal) | CPT/HCPCS: 70551 ==